=== PATIENT | male | born 1975 | race African-American/Black ===

== ENCOUNTER 2025-02-02 04:18 | Emergency (ER) | payer OTHER ==
[~2025-02-02] VITALS: Ht 170.2 cm; Wt 81.6 kg
[2025-02-02 05:59] VITALS: BP 150/80; TEMP 98.1; O2SAT 96
== END 2025-02-02 06:00 | disposition left against medical advice (07) ==
LOC: ER 04:24
DX: Z53.21 Procedure and treatment not carried out due to patient leaving prior to being seen by health care provider (principal)